=== PATIENT | female | born 1960 | race Caucasian/White ===

== ENCOUNTER 2017-07-01 08:09 | Emergency (ER) | payer BC ==
[2017-07-01] MEDS ORDERED: ONDANSETRON HCL INJ/PF 4 MG/2 ML SDV IV ONE (09:40)
[2017-07-01] MEDS ORDERED: NORMAL SALINE 500 ML IV ONE (09:40)
--- NOTE | 2017-07-01 09:44 | ER Document Report ---
ED General - General Chief Complaint: Fever Stated Complaint: FLU SYMPTOMS Time Seen by Provider: 07/01/17 09:07 Mode of Arrival: Ambulatory Information source: Patient, Relative Notes: 57-year-old female with a history of diabetes, coronary artery disease presents with complaint of myalgia, chills, sweats, cough and generalized fatigue. Patient states symptoms started 2 days prior to arrival. She has had sick contacts with family members with similar symptoms. Patient has tried over-the- counter cough medicine without relief. She also admits to nausea and 2 episodes of vomiting that began last night. Patient denies any headache, changes in vision, chest pain, shortness of breath, abdominal pain, back pain, dysuria. Patient to receive her flu shot this year. She does smoke and has a 30 year pack history. TRAVEL OUTSIDE OF THE [place] IN LAST 30 DAYS: No - HPI Onset: Yesterday Onset/Duration: Gradual Quality of pain: Achy Severity: Mild Associated symptoms: Fever, Nausea, Vomiting - Related Data Allergies/Adverse Reactions: Penicillins Allergy (Verified 07/01/17 08:10) VOMITING Past Medical History - General Information source: Patient - Social History Smoking Status: Current Every Day Smoker Chew tobacco use (# tins/day): No Smoking Education Provided: Yes Frequency of alcohol use: None Drug Abuse: None Lives with: Family Family History: Reviewed & Not Pertinent Patient has suicidal ideation: No Patient has homicidal ideation: No - Past Medical History Cardiac Medical History: Reports: Hx Coronary Artery Disease Endocrine Medical History: Reports: Hx Diabetes Mellitus Type 2 Past Surgical History: Reports: Hx Cardiac Catheterization, Hx Coronary Artery Bypass Graft Review of Systems - Review of Systems Constitutional: Chills, Weakness EENT: denies: Blurred vision Cardiovascular: denies: Chest pain, Palpitations, Syncope, Dizziness, Lightheaded Respiratory: Cough. denies: Hurts to breathe, Short of breath Gastrointestinal: Nausea, Vomiting. denies: Abdominal pain Genitourinary: No symptoms reported. denies: Dysuria, Flank pain Female Genitourinary: No symptoms reported Musculoskeletal: Muscle pain Skin: No symptoms reported Hematologic/Lymphatic: No symptoms reported Neurological/Psychological: denies: Confusion, Anxiety, Speech impairment, Numbness Physical Exam - Vital signs Vitals: Temp Pulse Resp BP Pulse Ox 98.3 F 95 19 116/73 98 07/01/17 08:14 07/01/17 08:14 07/01/17 08:14 07/01/17 08:14 07/01/17 08:14 Interpretation: Normal. No: Hypotensive, Febrile - General General appearance: Other - ill appeariNG Ill-appearing but not toxic but toxic or dehydrated In distress: None - HEENT Head: Normocephalic, Atraumatic Eyes: Normal Pupils: PERRL Tympanic membrane: Normal Nasal: Normal Mucous membranes: Dry Pharynx: Normal Neck: No: Anterior cervical chain, Carotid bruit - Respiratory Respiratory status: No respiratory distress. No: Respiratory distress Chest status: Nontender Breath sounds: Normal. No: Decreased air movement, Wheezing Chest palpation: Normal - Cardiovascular Rhythm: Regular. No: Tachycardia Heart sounds: Normal auscultation Murmur: No Pulses: Normal: Radial Normal capillary refill: Yes - Abdominal Inspection: Normal Distension: No distension Bowel sounds: Normal Tenderness: Nontender Organomegaly: No organomegaly - Back Back: Normal, Nontender. No: Vertebra tenderness - Extremities General upper extremity: Normal inspection, Nontender, Normal color, Normal ROM , Normal temperature. No: Edema General lower extremity: Normal inspection, Nontender, Normal color, Normal ROM , Normal temperature, Normal weight bearing. No: Edema, Christina's sign Calf: No: Tender - Neurological Neuro grossly intact: Yes Cognition: Normal Orientation: AAOx4 Carolynn Coma Scale Eye Opening: Spontaneous [place] Coma Scale Verbal: Oriented Carolynn Coma Scale Motor: Obeys Commands Carolynn Coma Scale Total: 15 Speech: Normal Cranial nerves: Normal Cerebellar coordination: Normal Motor strength normal: LUE, RUE, LLE, RLE Sensory: Normal - Psychological Associated symptoms: Normal affect, Normal mood. No: Anxious - Skin Skin Temperature: Warm Skin Moisture: Dry Skin Color: Normal Course - Re-evaluation Re-evalutation: Laboratory 07/01/17 07/01/17 07/01/17 10:32 10:45 10:45 WBC 7.8 RBC 5.18 Hgb 15.2 Hct 45.6 MCV 88 MCH 29.2 MCHC 33.2 RDW 14.3 H Plt Count 170 Seg Neutrophils % 74.8 Lymphocytes % 20.5 Monocytes % 4.1 Eosinophils % 0.1 Basophils % 0.5 Absolute Neutrophils 5.9 Absolute Lymphocytes 1.6 Absolute Monocytes 0.3 Absolute Eosinophils 0.0 Absolute Basophils 0.0 Sodium 135.7 L Potassium 3.9 Chloride 101 Carbon Dioxide 26 Anion Gap 9 BUN 9 Creatinine 0.42 L Est GFR ( Amer) > 60 Est GFR (Non-Af Amer) > 60 Glucose 294 H Calcium 8.4 Total Bilirubin 0.7 Direct Bilirubin 0.4 Neonat Total Bilirubin Not Reportable Neonat Direct Bilirubin Not Reportable Neonat Indirect Bili Not Reportable AST 25 ALT 33 Alkaline Phosphatase 152 H Creatine Kinase 68 CK-MB (CK-2) 0.28 Troponin I < 0.012 Total Protein 5.7 L Albumin 3.3 L Lipase 16.8 L Urine Color Urine Appearance Urine pH Ur Specific [place] Urine Protein Urine Glucose (UA) Urine Ketones Urine Blood Urine Nitrite Urine Bilirubin Urine Urobilinogen Ur Leukocyte Esterase Urine WBC (Auto) Urine RBC (Auto) Urine Bacteria (Auto) Squamous Epi Cells Auto Urine Mucus (Auto) Urine Ascorbic Acid Urine Opiates Screen Urine Methadone Screen Ur Barbiturates Screen Ur Phencyclidine Scrn Ur Amphetamines Screen U Benzodiazepines Scrn Urine Cocaine Screen U Marijuana (THC) Screen 07/01/17 07/01/17 11:28 11:28 WBC RBC Hgb Hct MCV MCH MCHC RDW Plt Count Seg Neutrophils % Lymphocytes % Monocytes % Eosinophils % Basophils % Absolute Neutrophils Absolute Lymphocytes Absolute Monocytes Absolute Eosinophils Absolute Basophils Sodium Potassium Chloride Carbon Dioxide Anion Gap BUN Creatinine Est GFR ( Amer) Est GFR (Non-Af Amer) Glucose Calcium Total Bilirubin Direct Bilirubin Neonat Total Bilirubin Neonat Direct Bilirubin Neonat Indirect Bili AST ALT Alkaline Phosphatase Creatine Kinase CK-MB (CK-2) Troponin I Total Protein Albumin Lipase Urine Color YELLOW Urine Appearance SLIGHTLY-CLOUDY Urine pH 6.0 Ur Specific [place] 1.032 Urine Protein 30 H Urine Glucose (UA) >=1000 H Urine Ketones 100 H Urine Blood SMALL H Urine Nitrite NEGATIVE Urine Bilirubin NEGATIVE Urine Urobilinogen 8.0 H Ur Leukocyte Esterase SMALL H Urine WBC (Auto) 71 Urine RBC (Auto) 7 Urine Bacteria (Auto) TRACE Squamous Epi Cells Auto 1 Urine Mucus (Auto) RARE Urine Ascorbic Acid NEGATIVE Urine Opiates Screen NEGATIVE Urine Methadone Screen UNCONFIRMED POSITIVE Ur Barbiturates Screen NEGATIVE Ur Phencyclidine Scrn NEGATIVE Ur Amphetamines Screen NEGATIVE U Benzodiazepines Scrn NEGATIVE Urine Cocaine Screen NEGATIVE U Marijuana (THC) Screen NEGATIVE Chest X-Ray 07/01/17 09:39 IMPRESSION: 1 No acute pulmonary findings. Minimal scarring and atelectasis at the left lung base. 07/01/17 12:08 57-year-old female with a history of diabetes, coronary artery disease presents with complaint of myalgia, chills, sweats, cough and generalized fatigue. Patient states symptoms started 2 days prior to arrival. She has had sick contacts with family members with similar symptoms. Vital signs were reviewed, patient is afebrile, normotensive and not hypoxic. She appears sleepy but is easily arousable and answers questions appropriately. On reevaluation patient states she is feeling better. She reports resolution of nausea, myalgias. He is requesting discharge home. She states she feels comfortable going home. I did inform her of her elevated glucose and advised her to return to her primary care physician for possible placement on diabetic medication. Smoking cessation advised. Patient and family are comfortable with discharge home. 07/01/17 15:48 07/01/17 15:50 - Vital Signs Vital signs: Temp Pulse Resp BP Pulse Ox 97.9 F 91 19 128/74 H 96 07/01/17 12:15 07/01/17 12:15 07/01/17 08:14 07/01/17 12:15 07/01/17 12:15 - Laboratory Result Diagrams: 07/01/17 10:32 07/01/17 10:45 Laboratory results interpreted by me: 07/01/17 07/01/17 07/01/17 10:32 10:45 11:28 RDW 14.3 H Sodium 135.7 L Creatinine 0.42 L Glucose 294 H Alkaline Phosphatase 152 H Total Protein 5.7 L Albumin 3.3 L Lipase 16.8 L Urine Protein 30 H Urine Glucose (UA) >=1000 H Urine Ketones 100 H Urine Blood SMALL H Urine Urobilinogen 8.0 H Ur Leukocyte Esterase SMALL H Discharge - Discharge Clinical Impression: Hyperglycemia, Viral illness, Glucosuria Condition: Good Disposition: HOME, SELF-CARE Instructions: Diabetes ([facility]), Viral Syndrome ([facility]) Referrals: MICHAEL DE ANDA MD [ACTIVE STAFF] - Follow up in 3-5 days
--- NOTE | 2017-07-01 10:12 | RADIOLOGY REPORT (SQ) ---
EXAM DESCRIPTION: CHEST PA/LAT COMPLETED DATE/TIME: 07/01/2017 10:04 am REASON FOR STUDY: cough fever COMPARISON: None. EXAM PARAMETERS: NUMBER OF VIEWS: two views TECHNIQUE: Digital Frontal and Lateral radiographic views of the chest acquired. RADIATION DOSE: NA LIMITATIONS: none FINDINGS: LUNGS AND PLEURA: Minimal scarring or atelectasis at the left lung base. No acute pulmon ana consolidation. No pneumothorax or pleural effusion. MEDIASTINUM AND HILAR STRUCTURES: No masses or contour abnormalities. HEART AND VASCULAR STRUCTURES: Heart normal size. No evidence for failure. BONES: No acute findings. HARDWARE: Prior anterior median sternotomy and CABG. OTHER: Hardware anterior surgical fusion mid-lower cervical spine. IMPRESSION: 1 No acute pulmonary findings. Minimal scarring and atelectasis at the left lung base. TECHNICAL DOCUMENTATION: JOB ID: [id number] [employer]- All Rights Reserved Reading location - IP/workstation name: [email or web address]
[2017-07-01 10:45] LABS: ABSOLUTE LYMPHOCYTES (AUTO) 1.6 10^3/uL (0.5-4.7); ABSOLUTE MONOCYTES (AUTO) 0.3 10^3/uL (0.1-1.4); ABSOLUTE NEUT (AUTO) 5.9 10^3/uL (1.7-8.2); BASOPHILS % (AUTO) 0.5 % (0-2); EOSINOPHILS % (AUTO) 0.1 % (0-6); HEMATOCRIT 45.6 % (36.0-47.0); HEMOGLOBIN 15.2 g/dL (12.0-15.5); LYMPHOCYTES % (AUTO) 20.5 % (13-45); MEAN CORPUSCULAR HEMOGLOBIN 29.2 pg (27.0-33.4); MEAN CORPUSCULAR HGB CONC 33.2 g/dL (32.0-36.0); MEAN CORPUSCULAR VOLUME 88 fl (80-97); MONOCYTES % (AUTO) 4.1 % (3-13); PLATELET COUNT 170 10^3/uL (150-450); RED BLOOD COUNT 5.18 10^6/uL (3.72-5.28); RED CELL DISTRIBUTION WIDTH 14.3 % (11.5-14.0); SEGMENTED NEUTROPHILS % (AUTO) 74.8 % (42-78); TOTAL CELLS COUNTED % (AUTO) 100 %; WHITE BLOOD COUNT 7.8 10^3/uL (4.0-10.5)
[2017-07-01 11:32] LABS: ALANINE AMINOTRANSFERASE 33 U/L (9-52); ALBUMIN 3.3 g/dL (3.5-5.0); ALKALINE PHOSPHATASE 152 U/L (38-126); ANION GAP 9 (5-19); ASPARTATE AMINO TRANSFERASE 25 U/L (14-36); BILIRUBIN,DIRECT 0.4 mg/dL (0.0-0.4); BILIRUBIN,TOTAL 0.7 mg/dL (0.2-1.3); BLOOD UREA NITROGEN 9 mg/dL (7-20); CALCIUM 8.4 mg/dL (8.4-10.2); CARBON DIOXIDE 26 mmol/L (22-30); CHLORIDE 101 mmol/L (98-107); CREATINE KINASE 68 U/L (30-135); CREATINE KINASE MB 0.28 ng/mL (<4.55); GLUCOSE 294 mg/dL (75-110); LIPASE 16.8 U/L (23-300); POTASSIUM 3.9 mmol/L (3.6-5.0); SODIUM 135.7 mmol/L (137-145); TOTAL PROTEIN 5.7 g/dL (6.3-8.2)
[2017-07-01 11:33] LABS: TROPONIN I < 0.012 ng/mL
[2017-07-01 11:50] LABS: APPEARANCE,URINE SLIGHTLY-CLOUDY; BILIRUBIN,URINE NEGATIVE (NEGATIVE); COLOR,URINE YELLOW; GLUCOSE, URINE >=1000 mg/dL (NEGATIVE); KETONES,URINE 100 mg/dL (NEGATIVE); LEUKOCYTE ESTERASE,URINE SMALL (NEGATIVE); NITRITE,URINE NEGATIVE (NEGATIVE); PROTEIN,URINE 30 mg/dL (NEGATIVE); URINE SPECIFIC GRAVITY 1.032
[2017-07-01 11:57] LABS: URINE AMPHETAMINES SCREEN NEGATIVE; URINE BARBITURATES SCREEN NEGATIVE; URINE BENZODIAZEPINES SCREEN NEGATIVE; URINE COCAINE SCREEN NEGATIVE; URINE MARIJUANA (THC) SCREEN NEGATIVE; URINE METHADONE SCREEN UNCONFIRMED POSITIVE; URINE PHENCYCLIDINE SCREEN NEGATIVE
[2017-07-01 12:32] VITALS: BP 128/74
--- NOTE | 2017-07-01 19:18 | EKG REPORT ---
SEVERITY:- ABNORMAL ECG - SINUS RHYTHM RBBB AND LPFB : Confirmed by: Toribio Hoang 01-Jul-2017 19:17:53
== END 2017-07-01 12:33 | disposition home or self-care (01) ==
LOC: ER 08:09
DX: B34.9 Viral infection, unspecified (principal); E11.65 Type 2 diabetes mellitus with hyperglycemia; M79.1 Myalgia; R61 Generalized hyperhidrosis; R53.83 Other fatigue; I25.10 Atherosclerotic heart disease of native coronary artery without angina pectoris; R11.2 Nausea with vomiting, unspecified; F17.200 Nicotine dependence, unspecified, uncomplicated; R53.1 Weakness; R68.83 Chills (without fever); Z88.0 Allergy status to penicillin; Z95.1 Presence of aortocoronary bypass graft
CPT/HCPCS: 93005; 99284; 96360; 36415; 82553; 82550; 83690; 85025; 80053; 81001; 84484; 80307; 71046; 93010; J7040